=== PATIENT | female | born 1975 ===

== ENCOUNTER 2017-12-23 15:32 | Emergency (ER) | payer MEDICAID ==
[2017-12-23 15:39] VITALS: PULSE 68
--- NOTE | 2017-12-23 16:12 | ED PDOC ---
HPI: Headache Time Seen by Provider: 12/23/17 16:00 Chief Complaint (Nursing): Headache Chief Complaint (Provider): Headache History Per: Patient History/Exam Limitations: no limitations Onset/Duration Of Symptoms: Days (x1 week) Current Symptoms Are (Timing): Still Present Additional Complaint(s): 42 year old female presents to the ED for evaluation of a frontal headache associated with intermittent nausea onset one week, now worsened by her current menstrual cycle. Patient states she tried taking one of her friend's migraine pills, but it made her vomit. She is also complaining of chest pain, not pleuritic but mostly near her left clavicle, which made it difficult for her to sleep last night. Patient also notes that she is mildly anxious due to a fibroids surgery she has scheduled next week. PMD: Zheng Herrmann Past Medical History Reviewed: Historical Data, Nursing Documentation, Vital Signs Vital Signs: Last Vital Signs Temp 98.0 F 12/23/17 15:34 Pulse 68 12/23/17 15:34 Resp 18 12/23/17 15:34 BP 115/65 12/23/17 15:34 Pulse Ox 100 12/23/17 15:34 - Medical History PMH: Asthma - Surgical History Surgical History: Tonsillectomy - Family History Family History: States: Unknown Family Hx - Home Medications Home Medications: Ambulatory Orders Medication Instructions Recorded Oxycodone HCl/Acetaminophen 1 tab PO Q8H #10 tab 06/27/14 [Percocet 325 mg-5 mg] - Allergies Allergies/Adverse Reactions: Allergies Allergy/AdvReac Type Severity Reaction Status Date / Time No Known Allergies Allergy Verified 12/23/17 15:34 Review of Systems ROS Statement: Except As Marked, All Systems Reviewed And Found Negative Constitutional: Positive for: Other (difficulty sleeping) Cardiovascular: Positive for: Chest Pain (near left clavicle) Gastrointestinal: Positive for: Nausea, Vomiting Neurological: Positive for: Headache (frontal) Psych: Positive for: Anxiety Physical Exam - Reviewed Nursing Documentation Reviewed: Yes Vital Signs Reviewed: Yes - Physical Exam Appears: Positive for: No Acute Distress Head Exam: Positive for: ATRAUMATIC, NORMOCEPHALIC Skin: Positive for: Normal Color, Warm, Dry Eye Exam: Positive for: Normal appearance ENT: Positive for: Normal ENT Inspection Neck: Positive for: Normal, Painless ROM, Supple Cardiovascular/Chest: Positive for: Regular Rate, Rhythm. Negative for: Chest Non Tender (mild tenderness) Respiratory: Positive for: Normal Breath Sounds. Negative for: Accessory Muscle Use, Respiratory Distress Gastrointestinal/Abdominal: Positive for: Normal Exam, Soft. Negative for: Tenderness Back: Positive for: Normal Inspection Neurologic/Psych: Positive for: Alert, Oriented (x3). Negative for: Motor/ Sensory Deficits - Laboratory Results Result Diagrams: 12/23/17 16:24 12/23/17 16:49 - ECG O2 Sat by Pulse Oximetry: 100 (RA) Pulse Ox Interpretation: Normal - Progress ED Course And Treament: reglan 10 mg iv x 1 dose toradol 15 mg iv x 1 dose ns 1 liter wide open Medical Decision Making Medical Decision Making: Time: 16:22 Initial Impression: headaches, chest pain Initial Plan: --BMP --Urine --CBC with differential --Normal saline IV --Reglan 10 mg IVP Scribe Attestation: Documented by Willa Palomino, acting as a scribe for Steven Moore PA-C. Provider Scribe Attestation: All medical record entries made by the Scribe were at my direction and personally dictated by me. I have reviewed the chart and agree that the record accurately reflects my personal performance of the history, physical exam, medical decision making, and the department course for this patient. I have also personally directed, reviewed, and agree with the discharge instructions and disposition. Disposition - Clinical Impression Clinical Impression: Headache - Patient ED Disposition Is Patient to be Admitted: No - Disposition Disposition: Routine/Home Disposition Time: 18:41 Condition: FAIR Instructions: Headache, Adult (DC)
[2017-12-23] MEDS: Sodium Chloride 0.9% 1,000 ML IV STA (16:42)
[2017-12-23 16:53] LABS: BASO % 0.6 % (0.0-2.0); EOS # 0.2 K/uL (0.0-0.7); EOS % 2.2 % (0.0-4.0); HEMOGLOBIN 12.7 g/dL (12.0-16.0); LYMPH # 2.7 K/uL (1.0-4.3); LYMPH % 36.9 % (20.0-40.0); MEAN CORPUSCULAR HEMOGLOBIN 30.4 pg (27.0-31.0); MEAN CORPUSCULAR HGB CONC 33.8 g/dL (33.0-37.0); MEAN PLATELET VOLUME 8.1 fl (7.2-11.7); MONO # 0.4 K/uL (0.0-0.8); MONO % 6.2 % (0.0-10.0); NEUT # 3.9 K/uL (1.8-7.0); NEUT % 54.1 % (50.0-75.0); RBC 4.17 Mil/uL (3.80-5.20); RED CELL DISTRIBUTION WIDTH 12.7 % (11.5-14.5); WHITE BLOOD COUNT 7.2 K/uL (4.8-10.8)
[2017-12-23 17:17] LABS: BLOOD UREA NITROGEN 15 mg/dl (7-17); CALCIUM 9.1 mg/dL (8.4-10.2); GFR AFRICAN-AMERICAN > 60; GFR NON-AFRICAN AMERICAN > 60
[2017-12-23 20:04] VITALS: BP 114/74; RESP 16; TEMP 98.2; O2SAT 99
== END 2017-12-23 20:03 | disposition home or self-care (01) ==
LOC: H.ER 15:32
DX: R51 Headache (principal); D25.9 Leiomyoma of uterus, unspecified
CPT/HCPCS: 80048; 81025; 85025; 96374; 99284; J2765; J7030